=== PATIENT | female | born 1945 | race Caucasian/White ===

== ENCOUNTER 2021-01-12 13:52 | Outpatient (CLI) | payer MEDICARE ==
[2021-01-13 01:51] LABS: SARS-CoV-2 PCR by NAA Not Detected (NotDetected)
== END 2021-01-12 13:53 | disposition home or self-care (01) ==
LOC: LABBT 13:52
PROVIDERS: ATTEND Surgery
DX: Z01.812 Encounter for preprocedural laboratory examination (principal); H26.493 Other secondary cataract, bilateral; Z20.822 Contact with and (suspected) exposure to COVID-19
CPT/HCPCS: U0003; U0005; 87635

== ENCOUNTER 2021-01-17 11:35 | Day surgery (SDC) | payer MEDICARE ==
[2021-01-17] MEDS ORDERED: Phenylephrine 2.5% Ophth Soln 5 ML BOT ONE (11:50)
== END 2021-01-17 13:20 | disposition home or self-care (01) ==
LOC: SDC 11:35
PROVIDERS: ATTEND Ophthalmology
PROC: 085K3ZZ Destruction of Left Lens, Percutaneous Approach (ICD-10-PCS; principal; 2021-01-17)
PROC: 085J3ZZ Destruction of Right Lens, Percutaneous Approach (ICD-10-PCS; 2021-01-17)
DX: H26.493 Other secondary cataract, bilateral (principal)